=== PATIENT | male | born 1960 | race African-American/Black ===

== ENCOUNTER 2016-12-21 20:16 | Emergency (ER) | payer SELFPAY ==
[~2016-12-21] VITALS: Ht 180.3 cm; Wt 113.4 kg
[2016-12-21] MEDS ORDERED: ACETAMINOPHEN 500 MG TABLET PO ONE (21:00)
[2016-12-21] MEDS ORDERED: MECLIZINE HCL 12.5 MG TABLET. PO ONE (21:00)
[2016-12-21] MEDS ORDERED: ONDANSETRON ODT 4 MG TAB.RAPDIS. PO ONE (21:00)
--- NOTE | 2016-12-21 21:10 | RAD ---
PQRS STATEMENT: One or more of the following in the visualized dose reduction techniques were utilized for this study: 1. Automatic exposure control, 2. Adjustment of the mA and/or kV according to patient size, 3. Use of iterative reconstruction technique CT HEAD INDICATION: pt.fell; head and neck pain COMPARISON: None Available. TECHNIQUE: 5 mm contiguous axial images were obtained from the skull base to the vertex in both bone and soft tissue algorithm. FINDINGS: No abnormal attenuation within the brain parenchyma. No evidence of acute intracranial hemorrhage. No extra-axial fluid collections. No mass effect or midline shift. Ventricular size is appropriate. Basal cisterns are patent. No fractures identified.Rodriguez-white differentiation is preserved.Globes and orbits are within normal limits. Visualized paranasal sinuses and mastoid air cells are clear. IMPRESSION: No acute intracranial abnormality. CT CERVICAL SPINE INDICATION: pt.fell; head and neck pain COMPARISON: None Available. Technique: 2.5 mm contiguous axial images were obtained from the skull base through the cervicothoracic junction in both bone and soft tissue algorithm. Additional sagittal and coronal reconstructions were also performed. FINDINGS: Cervical spinal alignment is within normal limits. The occipital condyles articulate normally with the lateral masses of C1. Vertebral body heights are maintained. There is no perching of the facets. There is no cervical spine fracture. There is degenerative disc height loss at all levels of the cervical spine with varying degrees of neural foraminal stenosis. Visualized soft tissues of the neck demonstrates thyromegaly. IMPRESSION: Negative for cervical spine fracture. Electronically signed by: Silvino Crisostomo MD (12/21/2016 9:07 PM)
[2016-12-21] MEDS ORDERED: ONDA4TAB10 SL (21:38)
[2016-12-21] MEDS ORDERED: MECL25TA3 PO (21:38)
--- NOTE | 2016-12-21 21:39 | PHYS DOC ---
Past Medical History Past Medical History: No Pertinent History Past Surgical History: Other Additional Past Surgical Histo: Left rotator cuff repair Alcohol Use: None Drug Use: None Adult General Chief Complaint Chief Complaint: MECHANICAL FALL HPI HPI Patient is a 56 year old male who presents with symptoms gradual in onset after slip and fall this afternoon. He slipped on wet floor, landing on the left side of his body and hitting his left back his head on the ground. He notes pain to left occiput and left neck tightness. He also notes mild left lateral hip pain and left general knee pain since the fall. He has been ambulatory with steady gait and maintains full range of motion at all joints. He has been dizzy and developed nausea and vomiting 2 close together this evening. He denies numbness, tingling, focal weakness, vision changes, chest pain, dyspnea, back pain, abdominal pain. Not on blood thinners. Review of Systems Review of Systems Constitutional: Denies fever or chills [] Eyes: Denies change in visual acuity, redness, or eye pain [] HENT: Denies nasal congestion or sore throat [] Respiratory: Denies cough or shortness of breath [] Cardiovascular: No additional information not addressed in HPI [] GI: Denies abdominal pain, bloody stools or diarrhea [] : Denies dysuria or hematuria [] Musculoskeletal: Denies back pain [] Integument: Denies rash or skin lesions [] Neurologic: Denies focal weakness or sensory changes [] Endocrine: Denies polyuria or polydipsia [] Current Medications Current Medications Current Medications Medications (Trade) Dose Ordered Sig/Adrian Start Time Stop Time Status Last Admin Dose Admin Acetaminophen (Tylenol) 500 mg 1X ONCE 12/21/16 21:00 12/21/16 21:01 DC 12/21/16 21:00 500 MG Meclizine HCl (Antivert) 25 mg 1X ONCE 12/21/16 21:00 12/21/16 21:01 DC 12/21/16 21:00 25 MG Ondansetron HCl (Zofran Odt) 4 mg 1X ONCE 12/21/16 21:00 12/21/16 21:01 DC 12/21/16 21:00 4 MG Allergies Allergies Allergies Coded Allergies Type Severity Reaction Last Updated Verified No Known Drug Allergies 12/21/16 No Physical Exam Physical Exam Constitutional: Well developed, well nourished, no acute distress, non-toxic appearance. [] HENT: Normocephalic, atraumatic, bilateral external ears normal, oropharynx moist, no oral exudates, nose normal. No reid sign, hemotympanum or raccoon eyes [] Eyes: PERRLA, EOMI, conjunctiva normal, no discharge. [] Neck: Normal range of motion, no midline spinal tenderness, supple, no stridor. Has slight left paraspinal tenderness with no visual or palpable abnormality [] Cardiovascular:Heart rate regular rhythm [] Lungs & Thorax: Bilateral breath sounds clear to auscultation [] Abdomen: Bowel sounds normal, soft, no tenderness. [] Skin: Warm, dry, no erythema, no rash. [] Back: No tenderness, no CVA tenderness. [] Extremities: LLE with no obvious deformity or discoloration; Has some lateral hip tenderness and general left knee tenderness with no visual or palpable abnormality; Able to flex/ex/IR/ER hip, knee full rom, ankle df/pf, toes df/pf; SILT see/sa/sp/dp/tib distributions; dp and pt pulses equal bilaterally Neurologic: Alert and oriented X 3, normal motor function, normal sensory function, no focal deficits noted, cranial nerves II through Intact. [] Psychologic: Affect normal, judgement normal, mood normal. [] Current Patient Data Vital Signs Vital Signs Date Time Temp Pulse Resp B/P (MAP) Pulse Ox O2 Delivery O2 Flow Rate FiO2 12/21/16 21:51 78 18 136/74 (94) 99 Room Air 12/21/16 20:41 98.4 98.4 Radiology/Procedures Radiology/Procedures Head CT without contrast IMPRESSION: No acute intracranial abnormality. Cervical spine CT without contrast IMPRESSION: Negative for cervical spine fracture. Electronically signed by: Silvino Crisostomo MD (12/21/2016 9:07 PM) Course & Med Decision Making Course & Med Decision Making Pertinent Labs and Imaging studies reviewed. (See chart for details) Workup is unremarkable. He is feeling better after medications and would like to go home. He is ambulatory with steady gait. Return precautions given. He understands and agrees with plan. Dragon Disclaimer Dragon Disclaimer This electronic medical record was generated, in whole or in part, using a voice recognition dictation system. Departure Departure Impression: Primary Impression: Closed head injury Additional Impression: Concussion syndrome Disposition: 01 HOME, SELF-CARE Condition: STABLE Referrals: NON,STAFF (PCP) Patient Instructions: Concussion and Brain Injury, [id number] Additional Instructions: Take Zofran as needed for nausea. Take meclizine as needed for dizziness. Take Tylenol or ibuprofen as needed for pain. Follow-up with your primary care doctor within one week. Return for any concerns. Scripts Ondansetron (ZOFRAN ODT) 4 Mg Tab.rapdis 1 TAB SL Q8HRS Y for NAUSEA, #10 TAB Prov: Suri EVANS MD 12/21/16 Meclizine Hcl (MECLIZINE HCL) 25 Mg Tablet 1 TAB PO PRN TID Y for DIZZINESS, #20 TAB Prov: Suri EVANS MD 12/21/16 Problem Qualifiers Primary Impression: Closed head injury Encounter type: initial encounter Qualified Codes: S09.90XA - Unspecified injury of head, initial encounter Suri EVANS MD Dec 21, 2016 21:39
[2016-12-21 21:51] VITALS: BP 136/74
== END 2016-12-21 22:11 | disposition home or self-care (01) ==
LOC: ER 20:16
DX: S06.0X0A Concussion without loss of consciousness, initial encounter (principal); M54.2 Cervicalgia; M25.552 Pain in left hip; M25.562 Pain in left knee; W01.10XA Fall on same level from slipping, tripping and stumbling with subsequent striking against unspecified object, initial encounter; Y93.89 Activity, other specified; Y92.89 Other specified places as the place of occurrence of the external cause; Y99.8 Other external cause status
CPT/HCPCS: 70450; 72125; 99284; J8597; Q0162

== ENCOUNTER 2016-12-23 15:34 | Emergency (ER) | payer SELFPAY ==
[~2016-12-23] VITALS: Ht 180.3 cm; Wt 117.9 kg
[~2016-12-23 15:34] MED LIST: MECL25TA3 PO; ONDA4TAB10 SL
[2016-12-23 15:55] VITALS: BP 140/87
--- NOTE | 2016-12-23 16:19 | PHYS DOC ---
Past Medical History Past Medical History: No Pertinent History Past Surgical History: Other Additional Past Surgical Histo: Left rotator cuff repair Alcohol Use: None Drug Use: None Adult General Chief Complaint Chief Complaint: MECHANICAL FALL HPI HPI Patient is a 56 year old -[place] male who presents with pain his right shoulder. He states he fell on Friday and was seen here and had a CT scan of his head neck but now is complaining about right shoulder pain. He states when he fell at a convenience store he was knocked out and denies been having intermittent headaches. He did states it's very mild in nature. He also complains about trapezius muscle spasm in his right side of his neck. He denies any fevers chills nausea vomiting. He's been taking Tylenol without any relief. Review of Systems Review of Systems Constitutional: Denies fever or chills [] Eyes: Denies change in visual acuity, redness, or eye pain [] HENT: Denies nasal congestion or sore throat [] Respiratory: Denies cough or shortness of breath [] Cardiovascular: No additional information not addressed in HPI [] GI: Denies abdominal pain, nausea, vomiting, bloody stools or diarrhea [] : Denies dysuria or hematuria [] Musculoskeletal: Denies back pain, positive for right shoulder pain Integument: Denies rash or skin lesions [] Neurologic: Denies headache, focal weakness or sensory changes [] Endocrine: Denies polyuria or polydipsia [] Allergies Allergies Allergies Coded Allergies Type Severity Reaction Last Updated Verified No Known Drug Allergies 12/21/16 No Physical Exam Physical Exam Constitutional: Well developed, well nourished, no acute distress, non-toxic appearance. [] HENT: Normocephalic, atraumatic, bilateral external ears normal, oropharynx moist, no oral exudates, nose normal. [] Eyes: PERRLA, EOMI, conjunctiva normal, no discharge. [] Neck: Normal range of motion, no tenderness, supple, no stridor. [] Cardiovascular:Heart rate regular rhythm, no murmur [] Lungs & Thorax: Bilateral breath sounds clear to auscultation [] Abdomen: Bowel sounds normal, soft, no tenderness, no masses, no pulsatile masses. [] Skin: Warm, dry, no erythema, no rash. [] Back: No tenderness, no CVA tenderness. [] Extremities: No obvious deformity of the right shoulder with tenderness palpation over the rotator cuff area, no cyanosis, no clubbing, ROM intact, no edema. Radial, ulnar, median nerve dissertations on the right upper chest when he intact to light touch, right radial artery 2+, range of motion intact, limited to pain of the right shoulder Neurologic: Alert and oriented X 3, normal motor function, normal sensory function, no focal deficits noted. [] Psychologic: Affect normal, judgement normal, mood normal. [] Current Patient Data Vital Signs Vital Signs Date Time Temp Pulse Resp B/P (MAP) Pulse Ox O2 Delivery O2 Flow Rate FiO2 12/23/16 15:55 98.3 59 18 95 Room Air 98.3 EKG EKG [] Radiology/Procedures Radiology/Procedures [facility] [address] [place] [address] IMAGING REPORT Signed PATIENT: DAKOTA BENITEZ ACCOUNT: [id number] : 1960 LOCATION: ER AGE: 56 SEX: M EXAM STATUS: REG ER ORD. PHYSICIAN: SHAE JAMES MD REASON: pain after fall PROCEDURE: SHOULDER 2+V RIGHT Three-view right shoulder radiographs 12/23/2016 Clinical history: Right shoulder pain post fall. AP internal and external rotation and transscapular digital radiographs of the right shoulder were obtained. No fracture or dislocation of the right shoulder is seen. Mild degenerative changes are seen involving the right glenohumeral joint and right AC joint. Impression: No fracture or dislocation of the right shoulder is seen. DICTATED and SIGNED BY: VERONA VELÁSQUEZ MD DATE: 12/23/16 9465 CC: SHAE JAMES MD; NILAM SINGH NP ~ Impressions: Right shoulder strain Course & Med Decision Making Course & Med Decision Making Pertinent Labs and Imaging studies reviewed. (See chart for details) X-rays right shoulder not show any fractures or other abnormalities. This is status post his fall this is likely rotator cuff injury or sprain. We will DC with Flexeril and postconcussive syndrome return precautions. Patient is instructed to rest in a dark room and tells headache resolves. He can use Flexeril as needed for muscle strain. He is to follow-up with primary care physician if not better within a week. Return precautions given his agreeable to the plan and being discharged in stable condition this time. Treva Disclaimer Treva Disclaimer This electronic medical record was generated, in whole or in part, using a voice recognition dictation system. Departure Departure Impression: Primary Impression: Muscle strain Additional Impression: Post concussion syndrome Disposition: 01 HOME, SELF-CARE Condition: STABLE Referrals: NILAM SINGH NP (PCP) DWAYNE THAKUR MD Patient Instructions: Muscle Strain, Post-Concussion Syndrome Additional Instructions: You might have postconcussive syndrome which is where he develop headaches after a concussion. If so you will need to rest your brain in a dark room anterior headache resolves. He can follow-up neurology if your headaches persist. Regarding her right shoulder you likely have a strained or pulled muscle. He can take Flexeril as needed for your pain. You will need to follow- up with your primary care physician within the next 1-2 weeks if not better. Scripts Cyclobenzaprine Hcl (CYCLOBENZAPRINE HCL) 10 Mg Tablet 1 TAB PO TID Y for MUSCLE SPASMS, #30 TAB Prov: SHAE JAMES MD 12/23/16 Problem Qualifiers SHAE JAMES MD Dec 23, 2016 16:19
--- NOTE | 2016-12-23 17:00 | RAD ---
Three-view right shoulder radiographs 12/23/2016 Clinical history: Right shoulder pain post fall. AP internal and external rotation and transscapular digital radiographs of the right shoulder were obtained. No fracture or dislocation of the right shoulder is seen. Mild degenerative changes are seen involving the right glenohumeral joint and right AC joint. Impression: No fracture or dislocation of the right shoulder is seen.
[2016-12-23] MEDS ORDERED: CYCL10TA2 PO (17:13)
== END 2016-12-23 17:41 | disposition home or self-care (01) ==
LOC: ER 15:34
DX: S46.911A Strain of unspecified muscle, fascia and tendon at shoulder and upper arm level, right arm, initial encounter (principal); F07.81 Postconcussional syndrome; W19.XXXA Unspecified fall, initial encounter; Y93.89 Activity, other specified; Y92.89 Other specified places as the place of occurrence of the external cause; Y99.8 Other external cause status
CPT/HCPCS: 73030; 99284

== ENCOUNTER → 2017-02-14 | Outpatient (CLI) | payer BC ==
[~2017-02-14] MED LIST changes: +CYCL10TA2 PO; +GADOBUTROL 7.5 MMOL/7.5 ML VIAL INT ART ONE; +IOHEXOL 300 MG/ML 50 ML VIAL. INT ART ONE; +LIDOCAINE 1% Multi-Dose 20 ML VIAL. ID ONE
--- NOTE | 2017-02-14 16:23 | KCIC ---
Fluoroscopic guided right shoulder injection dated 02/14/2017: No comparison available. Clinical Indication: Gadolinium injection for MRI. Technical factors: The potential benefits and risks of the procedure were discussed with the patient and informed consent was obtained. The anterior right shoulder was prepped and draped in a sterile fashion. After local anesthesia, a 22-gauge spinal needle was inserted into the right shoulder joint using an anterior approach.Following negative aspiration, 15 cc's of a solution of 5cc Omnipaque contrast, 5 cc 1% lidocaine, 10 cc normal saline, and 0.1 cc gadolinium was injected without difficulty. The needle was then removed and a dry sterile dressing was applied. The patient was then sent to the MR suite for imaging. The patient tolerated the procedure well. 1.17 minutes fluoroscopic time used for the study. One image. Findings: Single fluoroscopic image shows needle tip at the medial inferior 1/3 of the humeral head. Contrast material extends into the joint space. Impression: Fluoroscopic guided right shoulder injection for MRI as described above. Electronically signed by: Tigre Mariano MD (02/14/2017 4:19 PM) [id number]
--- NOTE | 2017-02-14 17:10 | KCIC ---
MR arthrogram right shoulder dated 02/14/2017 4:15 PM Indication: Pain limited range of motion prior history of fall shoulder popping Comparison: No comparison is available. Technique: Routine MR arthrogram performed following the intra-articular injection of dilute gadolinium. Injection portion the study will be reported separately. Findings: Contrast material throughout the glenohumeral joint space and within the subacromial/subdeltoid bursa. There is thinning and abnormal signal of the supraspinatus and infraspinatus portions of the rotator cuff. There is a full-thickness tear at the central supraspinatus footplate that measures 2.5 cm transverse and at least 1.9 cm AP dimension. Torn portion of the cuff is retracted to about the 12:00 position. There is articular surface partial tearing of the infraspinatus tendon that tendons the cuff substance by about 60-70 percent. There may be a few thin anterior supraspinatus fibers that remain intact. There is partial-thickness tearing of the upper margin of the subscapularis which is otherwise intact. Mild hypertrophic change of the acromioclavicular joint. Mild undersurface spurring. Acromion is type II morphology. There is increased signal and ill-definition of the proximal long head biceps tendon. Extra articular portion courses within the bicipital groove. Biceps anchor is somewhat ill-defined. There is irregularity and blunting of the posterior superior labrum with some linear increased signal in the labral substance. There is also blunted morphology of the anterior and inferior labrum. Mild degenerative change of the glenohumeral joint with thinning of the glenoid articular cartilage. Suspected full-thickness cartilage loss at the anterior inferior glenoid. No apparent loose body. Suprascapular and spinoglenoid notches are clear. No significant muscle edema. Mild generalized muscle atrophy. IMPRESSION: 1. Severe rotator cuff tendinopathy with moderate size full-thickness tear of the central supraspinatus footplate. The torn portion of the cuff is retracted to the 12:00 position. 2. Moderate articular surface partial tearing of the infraspinatus which is otherwise intact. There is also partial-thickness tearing of the upper portion of the subscapularis. 3. Moderate to severe proximal biceps tendinosis. 4. Mild degenerative arthrosis and chondromalacia at the glenohumeral joint. There is degenerative tearing of the anterior and posterior labrum. 5. Mild AC joint arthropathy with undersurface spurring. Electronically signed by: Tigre Mariano MD (02/14/2017 5:07 PM) [id number]
== END | disposition home or self-care (01) ==
LOC: KCIC 14:35
PROVIDERS: ATTEND Nurse Practitioner
DX: M75.101 Unspecified rotator cuff tear or rupture of right shoulder, not specified as traumatic (principal); M12.811 Other specific arthropathies, not elsewhere classified, right shoulder; M94.211 Chondromalacia, right shoulder
CPT/HCPCS: 73040; 73222; A9585; Q9967

== ENCOUNTER 2017-10-25 10:17 | Emergency (ER) | payer OTHER, BC ==
[2017-10-25] MEDS: diazePAM 5 MG TABLET PO (11:22)
[2017-10-25] MEDS: MORPHINE SULFATE 10 MG/ML VIAL. IM (11:23)
[2017-10-25] MEDS: DEXAMETHASONE SOD PHOS 20 MG/5 ML VIAL. IM (11:23)
[2017-10-25] MEDS: KETOROLAC 60 MG/2 ML INJ. IM (11:24)
== END 2017-10-25 12:37 | disposition home or self-care (01) ==
LOC: ER 10:17
DX: M54.42 Lumbago with sciatica, left side (principal); E11.9 Type 2 diabetes mellitus without complications; I10 Essential (primary) hypertension; F17.210 Nicotine dependence, cigarettes, uncomplicated
CPT/HCPCS: 96372; 99284; J1100; J1885; J2270

== ENCOUNTER 2018-11-16 18:31 | Emergency (ER) | payer OTHER ==
[~2018-11-16] VITALS: Ht 180.3 cm; Wt 122.5 kg
[~2018-11-16 18:31] MED LIST changes: +DIAZ5TAB PO; -GADOBUTROL 7.5 MMOL/7.5 ML VIAL INT ART ONE; +HYDR-2769 PO; -IOHEXOL 300 MG/ML 50 ML VIAL. INT ART ONE; -LIDOCAINE 1% Multi-Dose 20 ML VIAL. ID ONE; +NAPR-695 PO
[2018-11-16 18:57] VITALS: BP 115/64
[2018-11-16] MEDS ORDERED: KETOROLAC 30 MG/ML VIAL. IM ONE (19:45)
--- NOTE | 2018-11-16 20:12 | PHYS DOC ---
Past Medical History Past Medical History: Diabetes-Type II, Hypertension Past Surgical History: Other Additional Past Surgical Histo: Left rotator cuff repair,L KNEE Additional Information: non smoker Alcohol Use: None Drug Use: None Adult General Chief Complaint Chief Complaint: LOWER EXTREMITY SWELLING HPI HPI Patient is 58-year-old male who presents to the ER with left foot pain that has lasted 2-3 days. Pain is on the lateral aspect of his left foot. He rates the pain 10 out of 10 and throbbing. He tried ice and Aleve at home with minimal success. The pain is atraumatic. He has had similar pain in the past was diagnosed with plantar fasciitis. Review of Systems Review of Systems Constitutional: Denies fever or chills [] Eyes: Denies change in visual acuity, redness, or eye pain [] HENT: Denies nasal congestion or sore throat [] Respiratory: Denies cough or shortness of breath [] Cardiovascular: No additional information not addressed in HPI [] GI: Denies abdominal pain, nausea, vomiting, bloody stools or diarrhea [] : Denies dysuria or hematuria [] Musculoskeletal: Denies back pain or joint pain. Report L foot pain. Integument: Denies rash or skin lesions [] Neurologic: Denies headache, focal weakness or sensory changes [] Endocrine: Denies polyuria or polydipsia [] Complete systems were reviewed and found to be within normal limits, except as documented in this note. Current Medications Current Medications Current Medications Medications (Trade) Dose Ordered Sig/Adrian Start Time Stop Time Status Last Admin Dose Admin Ketorolac Tromethamine (Toradol 30mg Vial) 30 mg 1X ONCE 11/16/18 19:45 11/16/18 19:46 DC 11/16/18 19:58 30 MG Allergies Allergies Allergies Coded Allergies Type Severity Reaction Last Updated Verified No Known Drug Allergies 12/21/16 No Physical Exam Physical Exam Constitutional: Well developed, well nourished, no acute distress, non-toxic appearance. [] HENT: Normocephalic, atraumatic, bilateral external ears normal, oropharynx moist, no oral exudates, nose normal. [] Eyes: PERRLA, EOMI, conjunctiva normal, no discharge. [] Neck: Normal range of motion, no tenderness, supple, no stridor. [] Cardiovascular:Heart rate regular rhythm, no murmur [] Lungs & Thorax: Bilateral breath sounds clear to auscultation [] Abdomen: Bowel sounds normal, soft, no tenderness, no masses, no pulsatile masses. [] Skin: Warm, dry, no erythema, no rash. [] Back: No tenderness, no CVA tenderness. [] Extremities: Tenderness to the L lateral aspect of the foot, no cyanosis, no clubbing, ROM intact, no edema. [] Neurologic: Alert and oriented X 3, normal motor function, normal sensory function, no focal deficits noted. [] Psychologic: Affect normal, judgement normal, mood normal. [] Current Patient Data Vital Signs Vital Signs Date Time Temp Pulse Resp B/P (MAP) Pulse Ox O2 Delivery O2 Flow Rate FiO2 11/16/18 18:57 98.3 63 14 115/64 (81) 96 Room Air 98.3 EKG EKG [] Radiology/Procedures Radiology/Procedures []PATIENT: DAKOTA BENITEZ RACCOUNT: [id number]#: [id number] : 1960 LOCATION: ER AGE: 58 SEX: M EXAM STATUS: REG ER ORD. PHYSICIAN: KENDRICK RUSSO APRN REASON: L foot pain PROCEDURE: FOOT LEFT 3V EXAM: Left foot, 3 views. HISTORY: Pain. COMPARISON: None. FINDINGS: 3 views of the left foot are obtained. There is no acute fracture, dislocation or subluxation. There is minimal first metatarsal phalangeal spurring. There are corticated ossicles inferior to the medial malleolus, likely due to the sequela of remote injury. There is a small plantar spur. There is tibiotalar and mid foot spurring. There is slight enthesopathy at the Achilles tendon insertion. IMPRESSION: 1. No acute osseous finding. 2. 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 Electronically signed by: Lorena Hernández MD (11/16/2018 8:36 PM) [facility] Course & Med Decision Making Course & Med Decision Making Pertinent Labs and Imaging studies reviewed. (See chart for details) Discussed plan to get x-ray and give pain medication. Patient is agreeable. xray shows osteoarthritis no other abnormality. Will d/c home. Dragon Disclaimer Dragon Disclaimer This electronic medical record was generated, in whole or in part, using a voice recognition dictation system. Departure Departure Impression: Primary Impression: Foot pain, left Disposition: 01 HOME, SELF-CARE Condition: STABLE Referrals: NILAM SINGH CHOIR DIRECTOR (PCP) Additional Instructions: Follow up with primary care provider. Continue to use Ice and NSAIDs. KENDRICK RUSSO APRN November 16, 2018 20:12
--- NOTE | 2018-11-16 20:39 | RAD ---
EXAM: Left foot, 3 views. HISTORY: Pain. COMPARISON: None. FINDINGS: 3 views of the left foot are obtained. There is no acute fracture, dislocation or subluxation. There is minimal first metatarsal phalangeal spurring. There are corticated ossicles inferior to the medial malleolus, likely due to the sequela of remote injury. There is a small plantar spur. There is tibiotalar and mid foot spurring. There is slight enthesopathy at the Achilles tendon insertion. IMPRESSION: 1. No acute osseous finding. 2. 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 Electronically signed by: Lorena Hernández MD (11/16/2018 8:36 PM) [facility]
== END 2018-11-16 20:55 | disposition home or self-care (01) ==
LOC: ER 18:31
DX: M79.672 Pain in left foot (principal); M19.072 Primary osteoarthritis, left ankle and foot; I10 Essential (primary) hypertension; E11.9 Type 2 diabetes mellitus without complications
CPT/HCPCS: 73630; 96372; 99284; J1885

== ENCOUNTER 2020-10-01 09:57 | Emergency (ER) | payer OTHER ==
[~2020-10-01] VITALS: Ht 180.3 cm; Wt 118.3 kg
[~2020-10-01 09:57] MED LIST changes: +MECL-75 PO; -MECL25TA3 PO
[2020-10-01] MEDS ORDERED: MORPHINE SULFATE 4 MG/ML VIAL. IV ONE ×2 (10:15→11:15)
[2020-10-01] MEDS ORDERED: IV NORMAL SALINE 1000ML BAG 1,000 ML IV SCH (10:15)
[2020-10-01 10:42] LABS: BASO % 1 % (0-3); EOS # 0.1 x10^3/uL (0.0-0.7); EOS % 1 % (0-3); HEMATOCRIT 49.9 % (39.0-53.0); HEMOGLOBIN 16.6 g/dL (13.0-17.5); LYMPH # 0.8 x10^3/uL (1.0-4.8); LYMPH % 12 % (24-48); MEAN CORPUSCULAR HEMOGLOBIN 32 pg (25-35); MEAN CORPUSCULAR HGB CONC 33 g/dL (31-37); MEAN CORPUSCULAR VOLUME 95 fL (79-100); MONO # 0.5 x10^3/uL (0.0-1.1); MONO % 8 % (0-9); NEUT # 5.1 x10^3/uL (1.8-7.7); NEUT % 78 % (31-73); PLATELET COUNT 183 x10^3/uL (140-400); RED BLOOD COUNT 5.24 x10^6/uL (4.30-5.70); RED CELL DISTRIBUTION WIDTH 14.1 % (11.5-14.5); WHITE BLOOD COUNT 6.5 x10^3/uL (4.0-11.0)
--- NOTE | 2020-10-01 10:50 | RAD ---
XR CHEST 1V INDICATION: chest pain COMPARISON STUDY: None. FINDINGS: Lungs: Normal lung volume. Mild left basilar opacities. Normal pulmonary vasculature. Pleura: No pleural effusion or pneumothorax. Heart and Mediastinum: Normal cardiomediastinal silhouette and great vessels. IMPRESSION: Mild left basilar opacities, which probably represent subsegmental atelectasis, although an infectious/inflammatory process could have a similar appearance. Electronically signed by: Clint Rogel MD (10/01/2020 10:47 AM) [id number]
[2020-10-01 10:54] LABS: CALCIUM 8.9 mg/dL (8.5-10.1); CREATININE 1.6 mg/dL (0.7-1.3); GFR 53.4; POTASSIUM 4.6 mmol/L (3.5-5.1)
[2020-10-01 11:00] LABS: ALBUMIN 3.3 g/dL (3.4-5.0); ALBUMIN/GLOBULIN RATIO 0.9 (1.0-1.7); MAGNESIUM 1.9 mg/dL (1.8-2.4); TOTAL BILIRUBIN 0.6 mg/dL (0.2-1.0); TOTAL PROTEIN 6.9 g/dL (6.4-8.2)
[2020-10-01] MEDS ORDERED: FAMOTIDINE 20 MG/2 ML VIAL IVP ONE (11:15)
[2020-10-01] MEDS ORDERED: LIDO:MAALOX 1:1 20 ML SINGLE DOSE. SWSW ONE (11:15)
--- NOTE | 2020-10-01 11:18 | PHYS DOC ---
Past Medical History Past Medical History: Diabetes-Type II, Hypertension Past Surgical History: Other Additional Past Surgical Histo: Left rotator cuff repair,L KNEE Smoking Status: Never Smoker Alcohol Use: None Drug Use: None Adult General Chief Complaint Chief Complaint: CHEST PAIN HPI HPI Patient is a 59 year old male with a past medical history of hypertension and diabetes now presenting emergency department complaint of new onset of chest pain. Patient states that he was woken from sleep at approximately 5 AM this morning with new onset of sudden left anterior chest pain. Patient states that her left chest and moved to the stomach. Patient states he had a similar episode when he had acid reflux a few years ago. Denies any nausea, vomiting, neck pain, jaw pain, numbness or tingling. Patient denies any recent fever, chills, cough or flulike symptoms. Review of Systems Review of Systems Constitutional: Denies fever or chills [] Eyes: Denies change in visual acuity, redness, or eye pain [] HENT: Denies nasal congestion or sore throat [] Respiratory: Denies cough or shortness of breath [] Cardiovascular: No additional information not addressed in HPI [] GI: Denies abdominal pain, nausea, vomiting, bloody stools or diarrhea [] : Denies dysuria or hematuria [] Musculoskeletal: Denies back pain or joint pain [] Integument: Denies rash or skin lesions [] Neurologic: Denies headache, focal weakness or sensory changes [] Endocrine: Denies polyuria or polydipsia [] All other systems were reviewed and found to be within normal limits, except as documented in this note. Current Medications Current Medications Current Medications Medications (Trade) Dose Ordered Sig/Adrian Start Time Stop Time Status Last Admin Dose Admin Famotidine (Pepcid Vial) 20 mg 1X ONCE 10/01/20 11:15 10/01/20 11:21 DC 10/01/20 12:17 20 MG Info (CONTRAST GIVEN -- Rx MONITORING) 1 each PRN DAILY PRN 10/01/20 15:45 10/03/20 15:44 Iohexol (Omnipaque 350 Mg/ml) 80 ml 1X ONCE 10/01/20 15:30 10/01/20 15:31 DC 10/01/20 15:34 80 ML Morphine Sulfate (Morphine Sulfate) 4 mg 1X ONCE 10/01/20 11:15 10/01/20 11:21 DC Multi-Ingredient Mouthwash/Gargle (Gi Cocktail) 20 ml 1X ONCE 10/01/20 11:15 10/01/20 11:21 DC 10/01/20 12:17 20 ML Sodium Chloride 1,000 ml @ 1,000 mls/hr Q1H 10/01/20 10:15 10/01/20 11:14 DC 10/01/20 10:24 1,000 MLS/HR Allergies Allergies Allergies Coded Allergies Type Severity Reaction Last Updated Verified No Known Drug Allergies 12/21/16 No Physical Exam Physical Exam Constitutional: Well developed, well nourished, no acute distress, non-toxic appearance. [] HENT: Normocephalic, atraumatic, bilateral external ears normal, oropharynx moist, no oral exudates, nose normal. [] Eyes: PERRLA, EOMI, conjunctiva normal, no discharge. [] Neck: Normal range of motion, no tenderness, supple, no stridor. [] Cardiovascular:Heart rate regular rhythm, no murmur [] Lungs & Thorax: Bilateral breath sounds clear to auscultation [] Abdomen: Bowel sounds normal, soft, no tenderness, no masses, no pulsatile masses. [] Skin: Warm, dry, no erythema, no rash. [] Back: No tenderness, no CVA tenderness. [] Extremities: No tenderness, no cyanosis, no clubbing, ROM intact, no edema. [] Neurologic: Alert and oriented X 3, normal motor function, normal sensory function, no focal deficits noted. [] Psychologic: Affect normal, judgement normal, mood normal. [] Current Patient Data Vital Signs Vital Signs Date Time Temp Pulse Resp B/P (MAP) Pulse Ox O2 Delivery O2 Flow Rate FiO2 10/01/20 14:20 67 161/86 (111) 94 Room Air 10/01/20 11:15 16 10/01/20 10:02 98.0 98.0 Lab Values Laboratory Tests Test 10/01/20 10:00 10/01/20 10:20 10/01/20 13:10 D-Dimer (Batsheva) 0.62 ug/mlFEU (0.00-0.50) H White Blood Count 6.5 x10^3/uL (4.0-11.0) Red Blood Count 5.24 x10^6/uL (4.30-5.70) Hemoglobin 16.6 g/dL (13.0-17.5) Hematocrit 49.9 % (39.0-53.0) Mean Corpuscular Volume 95 fL (79-100) Mean Corpuscular Hemoglobin 32 pg (25-35) Mean Corpuscular Hemoglobin Concent 33 g/dL (31-37) Red Cell Distribution Width 14.1 % (11.5-14.5) Platelet Count 183 x10^3/uL (140-400) Neutrophils (%) (Auto) 78 % (31-73) H Lymphocytes (%) (Auto) 12 % (24-48) L Monocytes (%) (Auto) 8 % (0-9) Eosinophils (%) (Auto) 1 % (0-3) Basophils (%) (Auto) 1 % (0-3) Neutrophils # (Auto) 5.1 x10^3/uL (1.8-7.7) Lymphocytes # (Auto) 0.8 x10^3/uL (1.0-4.8) L Monocytes # (Auto) 0.5 x10^3/uL (0.0-1.1) Eosinophils # (Auto) 0.1 x10^3/uL (0.0-0.7) Basophils # (Auto) 0.0 x10^3/uL (0.0-0.2) Sodium Level 139 mmol/L (136-145) Potassium Level 4.6 mmol/L (3.5-5.1) Chloride Level 103 mmol/L (98-107) Carbon Dioxide Level 30 mmol/L (21-32) Anion Gap 6 (6-14) Blood Urea Nitrogen 9 mg/dL (8-26) Creatinine 1.6 mg/dL (0.7-1.3) H Estimated GFR (Cockcroft-Gault) 53.4 BUN/Creatinine Ratio 6 (6-20) Glucose Level 162 mg/dL (70-99) H Calcium Level 8.9 mg/dL (8.5-10.1) Magnesium Level 1.9 mg/dL (1.8-2.4) Total Bilirubin 0.6 mg/dL (0.2-1.0) Aspartate Amino Transferase (AST) 13 U/L (15-37) L Alanine Aminotransferase (ALT) 21 U/L (16-63) Alkaline Phosphatase 72 U/L (46-116) Troponin I Quantitative < 0.017 ng/mL (0.000-0.055) < 0.017 ng/mL (0.000-0.055) Total Protein 6.9 g/dL (6.4-8.2) Albumin 3.3 g/dL (3.4-5.0) L Albumin/Globulin Ratio 0.9 (1.0-1.7) L Lipase 165 U/L (73-393) Laboratory Tests 10/01/20 10:20 Laboratory Tests 10/01/20 10:20 EKG EKG Normal sinus rhythm, no interval lengthening, no ST-T wave changes, segments normal Radiology/Procedures Radiology/Procedures [] Course & Med Decision Making Course & Med Decision Making Pertinent Labs and Imaging studies reviewed. (See chart for details) 59M presented emergency department new onset of left anterior chest pain. ACS protocol in ordered. Troponin negative and EKG normal however patient with a baseline heart score of 4. Labs were initially ordered and unremarkable other than a mild elevation in creatinine. I discussed this in the patient's relatively high risk for acute coronary syndrome. Patient is stating that he does not want to be admitted to the hospital because he has an interview tomorrow. Patient is requesting evaluated today. I did convince the patient to stay for a few hours for repeat troponin and ongoing symptomatic control. 15:45 -troponin negative x2. After the initial evaluation patient was stating that his pain became pleuritic. D-dimer was obtained and nonnegative therefore CT scan of the chest was obtained. Dragon Disclaimer Dragon Disclaimer This electronic medical record was generated, in whole or in part, using a voice recognition dictation system. Departure Departure Impression: Primary Impression: Chest pain Disposition: 01 DC HOME SELF CARE/HOMELESS Condition: GOOD Referrals: NILAM SINGH PRODUCTION TRAINER (PCP) Patient Instructions: Chest Pain (Nonspecific) Additional Instructions: EMERGENCY DEPARTMENT GENERAL DISCHARGE INSTRUCTIONS Thank you for coming to [facility] Emergency Department (ED) today and trusting us with you care. We trust that you had a positive experience in our Emergency Department. If you wish to speak to the department management, you may call the Director at [phone]. YOUR FOLLOW UP INSTRUCTIONS ARE FOLLOWS: 1. Do you have a private Doctor? If you do not have a private doctor, please ask for a resource list of physicians or clinics that may be able to assist you with follow up care. 2. The Emergency Physicain has interpreted your x-rays. The X-Ray specialist will also review them. If there is a change in the findings, you will be notified in 48 hours when at all possible. 3. A lab test or culture has been done, your results will be reviewed and you will be notified if you need a change in treatment. ADDITIONAL INSTRUCTIONS AND INFORMATION: 1. Your care today has been supervised by a physician who is specially trained in emergency care. Many problems require more than one evaluation for a complete diagnosis and treatment. We recommend that you schedule your follow up appointment as recommended to ensure complete treatment of you illness or injury. If you are unable to obtain follow up care and continue to have a problem, or if your condition worsens, we recommend that you return to the ED. 2. We are not able to safely determine your condition over the phone nor are we able to give sound medical advice over the phone. For these safety reasons, if you call for medical advice we will ask you to come to the ED for further evaluation. 3. If you have any questions regarding these discharge instructions please call the ED at [phone]. SAFETY INFORMATION: In the interest of safety, wellness, and injury prevention; we encourage you to wear your sealbelt, if you smoke; quite smoking, and we encourage family to use a protective helmet for bicycling and other sporting events that present an increased risk for head injury. IF YOUR SYMPTOMS WORSEN OR NEW SYMPTOMS DEVELOP, OR YOU HAVE CONCERNS ABOUT YOUR CONDITION; OR IF YOUR CONDITION WORSENS WHILE YOU ARE WAITING FOR YOUR FOLLOW UP APPOINTMENT; EITHER CONTACT YOUR PRIMARY CARE DOCTOR, THE PHYSICIAN WHOSE NAME AND NUMBER YOU WERE GIVEN, OR RETURN TO THE ED IMMEDIATELY. Scripts Naproxen (NAPROSYN) 500 Mg Tablet 1 TAB PO BID for pain, #20 TAB Prov: DYLAN HADLEY MD 10/01/20 DYLAN HADLEY MD Oct 01, 2020 11:18
[2020-10-01 14:20] VITALS: BP 161/86
[2020-10-01] MEDS ORDERED: IOHEXOL 350 MG/ML 100 ML VIAL. IV ONE (15:30)
[2020-10-01] MEDS ORDERED: CONTRAST GIVEN. MC PRN (15:45)
[2020-10-01] MEDS ORDERED: NAPR-683 PO (15:49)
--- NOTE | 2020-10-01 15:58 | RAD ---
PQRS Compliance Statement: One or more of the following individualized dose reduction techniques were utilized for this examinat ion: 1. Automated exposure control 2. Adjustment of the mA and/or kV according to patient size 3. Use of iterative reconstruction technique Exam performed: CT pulmonary angiogram. HISTORY: Chest pain. DATE OF SERVICE: 10/01/2020. COMPARISON: None available TECHNIQUE: Contiguous helical acquisitions are obtained through the chest during intravenous demonstr ation of 80 cc of Isovue-370. Sagittal and coronal reformatted images are obtained and reviewed. FINDINGS: Adequate opacification of the pulmonary arteries no filling defects to suggest pulmonary embolism is noted. Heart size is within limits of normal without pericardial effusion. Aorta is normal in caliber . No mediastinal or hilar adenopathy is seen. Pattern gland is symmetrically prominent. The lungs are essentially clear. No focal infiltrates, effusion or pneumothorax is seen. Limited evaluation of the upper abdominal structures is unremarkable. IMPRESSION: Study is negative for pulmonary embolism. No other pulmonary abnormality seen. Electronically signed by: Yanira Palafox MD (10/01/2020 3:55 PM) [facility]
--- NOTE | 2020-10-01 20:35 | EKG ---
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
== END 2020-10-01 16:05 | disposition home or self-care (01) ==
LOC: ER 09:57
DX: R07.89 Other chest pain (principal); E11.9 Type 2 diabetes mellitus without complications; I10 Essential (primary) hypertension; Z98.890 Other specified postprocedural states
CPT/HCPCS: 36415; 71045; 71275; 80053; 83690; 83735; 84484; 85025; 85379; 93005; 96361; 96374; 96375; 99285; J2270; J3490; J7030; Q9967

== ENCOUNTER 2020-10-10 00:02 | Emergency (ER) | payer OTHER ==
[~2020-10-10] VITALS: Ht 177.8 cm; Wt 118.9 kg
[~2020-10-10 00:02] MED LIST changes: +NAPR-683 PO
--- NOTE | 2020-10-10 00:50 | EKG ---
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
[2020-10-10 01:19] LABS: BASO % 1 % (0-3); EOS % 0 % (0-3); HEMATOCRIT 44.3 % (39.0-53.0); HEMOGLOBIN 15.1 g/dL (13.0-17.5); LYMPH # 0.5 x10^3/uL (1.0-4.8); LYMPH % 14 % (24-48); MEAN CORPUSCULAR HEMOGLOBIN 32 pg (25-35); MEAN CORPUSCULAR HGB CONC 34 g/dL (31-37); MEAN CORPUSCULAR VOLUME 95 fL (79-100); MONO # 0.2 x10^3/uL (0.0-1.1); MONO % 7 % (0-9); NEUT # 2.9 x10^3/uL (1.8-7.7); NEUT % 78 % (31-73); PLATELET COUNT 200 x10^3/uL (140-400); RED BLOOD COUNT 4.65 x10^6/uL (4.30-5.70); RED CELL DISTRIBUTION WIDTH 13.9 % (11.5-14.5); WHITE BLOOD COUNT 3.7 x10^3/uL (4.0-11.0)
[2020-10-10 01:30] LABS: CALCIUM 8.6 mg/dL (8.5-10.1); CREATININE 1.7 mg/dL (0.7-1.3); GFR 49.8; POTASSIUM 3.8 mmol/L (3.5-5.1)
[2020-10-10 01:36] LABS: ALBUMIN 3.1 g/dL (3.4-5.0); ALBUMIN/GLOBULIN RATIO 0.8 (1.0-1.7); TOTAL BILIRUBIN 0.2 mg/dL (0.2-1.0); TOTAL PROTEIN 6.9 g/dL (6.4-8.2)
[2020-10-10] MEDS ORDERED: IV NORMAL SALINE 1000ML BAG 1,000 ML IV ONE (02:00)
--- NOTE | 2020-10-10 02:12 | RAD ---
PQRS Compliance Statement: One or more of the following individualized dose reduction techniques were utilized for this examinat ion: 1. Automated exposure control 2. Adjustment of the mA and/or kV according to patient size 3. Use of iterative reconstruction technique CT HEAD WITHOUT CONTRAST History: Reason: intoxication, fall without LOC Comparison: CT head without contrast December 21, 2016. Procedure: Axial images are obtained of the head from the skull base through the vertex without IV co ntrast. Findings: The ventricles and sulci are normal for the patient's age. No mass-effect, midline shift, hemorrhage, extra-axial fluid collection, or obvious acute infarction is identified. Basilar cisterns are patent. Bone windows demonstrate no acute calvarial abnormality. The visualized paranasal sinuses are clear. Mastoid air cells are well aerated. IMPRESSION: No acute intracranial abnormality. Electronically signed by: Pola Butler MD (10/10/2020 2:10 AM) [facility]
--- NOTE | 2020-10-10 02:22 | RAD ---
XR CHEST 1V Clinical Indication: Reason: intoxication, cough Comparison: AP chest 09/03/2020. Findings: The cardiomediastinal silhouette is normal. Unchanged linear opacity of the lateral left lung base, m ay be discoid atelectasis or scarring. Lungs are otherwise clear. There is no pneumothorax. No pleura l effusion is appreciated. No acute bone abnormality. There is arthropathy of the left shoulder. IMPRESSION: Unchanged discoid atelectasis or scarring in the lateral left lung base. Electronically signed by: Pola Butler MD (10/10/2020 2:19 AM) [facility]
[2020-10-10 02:44] VITALS: BP 153/91
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
== END 2020-10-10 02:55 | disposition home or self-care (01) ==
LOC: ER 00:02
DX: E11.22 Type 2 diabetes mellitus with diabetic chronic kidney disease (principal); I12.9 Hypertensive chronic kidney disease with stage 1 through stage 4 chronic kidney disease, or unspecified chronic kidney disease; N18.9 Chronic kidney disease, unspecified; R53.1 Weakness; R53.83 Other fatigue; R42 Dizziness and giddiness; Z98.890 Other specified postprocedural states
CPT/HCPCS: 36415; 70450; 71045; 80053; 82962; 84484; 85025; 93005; 96360; 99285; G0480; J7030